=== PATIENT | male | born 1985 | race American Indian/Alaskan Native ===

== ENCOUNTER 2020-04-01 10:22 | Emergency (ER) | payer SELFPAY ==
[2020-04-01 10:48] VITALS: BP 109/65
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
== END 2020-04-01 11:20 | disposition left against medical advice (07) ==
LOC: ED 10:22
DX: F20.89 Other schizophrenia (principal); Z53.21 Procedure and treatment not carried out due to patient leaving prior to being seen by health care provider